=== PATIENT | male | born 1970 | race Caucasian/White ===

== ENCOUNTER 2016-12-24 19:29 | Emergency (ER) | payer MEDICAID ==
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
== END 2016-12-24 20:27 | disposition home or self-care (01) ==
LOC: JP.ED 19:29
DX: T21.14XA Burn of first degree of lower back, initial encounter (principal)
CPT/HCPCS: 99283